=== PATIENT | female | born 1985 | race Caucasian/White ===

== ENCOUNTER 2017-06-07 17:41 | Emergency (ER) | payer OTHER ==
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
[2017-06-07 19:45] VITALS: BP 127/74
== END 2017-06-07 19:41 | disposition home or self-care (01) ==
LOC: ER 17:41
DX: S16.1XXA Strain of muscle, fascia and tendon at neck level, initial encounter (principal); S39.012A Strain of muscle, fascia and tendon of lower back, initial encounter; V89.2XXA Person injured in unspecified motor-vehicle accident, traffic, initial encounter; I10 Essential (primary) hypertension; Z91.040 Latex allergy status
CPT/HCPCS: 99283

== ENCOUNTER 2017-11-15 18:03 | Emergency (ER) | payer SELFPAY ==
[2017-11-15] MEDS ORDERED: NORMAL SALINE 1000 ML 1,000 ML IV ONE (18:36)
--- NOTE | 2017-11-15 18:36 | ER Document Report ---
ED Medical Screen (RME) - General Chief Complaint: Vaginal Bleeding Stated Complaint: VAGINAL BLEEDING Time Seen by Provider: 11/15/17 18:30 Notes: RAPID MEDICAL EVALUATION DISCLOSURE I have seen this patient as part of a Rapid Medical Evaluation and, if applicable, placed any initially appropriate orders. The patient will be seen and fully evaluated, including a full history and physical exam, by a provider ( in Main ED or Fast Track) when a room becomes available. 32-year-old female here with complaints of heavy vaginal bleeding over the past 5-6 days. She states that she has been soaking the "overnight pads" within 2 hours and the blood is pouring out over the sides. She has past very large clots. She has had 2 negative home test and wonders if she might be because she accidentally used her NuvaRing incorrectly for 1 week. Denies any abdominal pain at this time but did have some intermittent cramping earlier. Exam Minimally tachycardic No abdominal TTP TRAVEL OUTSIDE OF THE [place] IN LAST 30 DAYS: No - Related Data Allergies/Adverse Reactions: latex [Latex] Adverse Reaction (Intermediate, Verified 06/07/17 17:43) Rash, Itching Past Medical History - Past Medical History Cardiac Medical History: Reports: Hx Hypertension Pulmonary Medical History: Reports: Hx Pneumonia Neurological Medical History: Reports: Hx Migraine Musculoskeltal Medical History: Reports Hx Arthritis, Reports Hx Musculoskeletal Deformity Psychiatric Medical History: Reports: Hx Anxiety, Hx Attention Deficit Hyperactivity Disorder, Hx Depression Past Surgical History: Reports: Hx Abdominal Surgery - umb hernia, Hx Tonsillectomy, Hx Umbilical Hernia - Immunizations Immunizations up to date: Yes Hx Diphtheria, Pertussis, Tetanus Vaccination: Yes - 2010 Physical Exam - Vital signs Vitals: Temp Pulse Resp BP Pulse Ox 98.3 F 114 H 16 131/86 H 98 11/15/17 18:10 11/15/17 18:10 11/15/17 18:10 11/15/17 18:10 11/15/17 18:10 Course - Vital Signs Vital signs: Temp Pulse Resp BP Pulse Ox 98.3 F 114 H 16 131/86 H 98 11/15/17 18:10 11/15/17 18:10 11/15/17 18:10 11/15/17 18:10 11/15/17 18:10
[2017-11-15 19:31] LABS: ABSOLUTE EOSINOPHILS # (AUTO) 0.2 10^3/uL (0.0-0.6); ABSOLUTE LYMPHOCYTES (AUTO) 3.2 10^3/uL (0.5-4.7); ABSOLUTE MONOCYTES (AUTO) 0.9 10^3/uL (0.1-1.4); BASOPHILS % (AUTO) 0.4 % (0-2); EOSINOPHILS % (AUTO) 1.5 % (0-6); HEMATOCRIT 39.2 % (36.0-47.0); HEMOGLOBIN 13.5 g/dL (12.0-15.5); LYMPHOCYTES % (AUTO) 26.3 % (13-45); MEAN CORPUSCULAR HEMOGLOBIN 29.6 pg (27.0-33.4); MEAN CORPUSCULAR HGB CONC 34.5 g/dL (32.0-36.0); MEAN CORPUSCULAR VOLUME 86 fl (80-97); MONOCYTES % (AUTO) 7.1 % (3-13); PLATELET COUNT 460 10^3/uL (150-450); RED BLOOD COUNT 4.56 10^6/uL (3.72-5.28); SEGMENTED NEUTROPHILS % (AUTO) 64.7 % (42-78); TOTAL CELLS COUNTED % (AUTO) 100 %; WHITE BLOOD COUNT 12.3 10^3/uL (4.0-10.5)
[2017-11-15 19:56] LABS: ANION GAP 13 (5-19); BLOOD UREA NITROGEN 14 mg/dL (7-20); CALCIUM 9.8 mg/dL (8.4-10.2); CARBON DIOXIDE 28 mmol/L (22-30); CHLORIDE 103 mmol/L (98-107); GLUCOSE 94 mg/dL (75-110); POTASSIUM 3.6 mmol/L (3.6-5.0)
[2017-11-15 20:02] LABS: APPEARANCE,URINE SLIGHTLY-CLOUDY; BILIRUBIN,URINE NEGATIVE (NEGATIVE); COLOR,URINE YELLOW; GLUCOSE, URINE NEGATIVE (NEGATIVE); KETONES,URINE NEGATIVE (NEGATIVE); LEUKOCYTE ESTERASE,URINE NEGATIVE (NEGATIVE); NITRITE,URINE NEGATIVE (NEGATIVE); PROTEIN,URINE NEGATIVE (NEGATIVE); URINE SPECIFIC GRAVITY 1.025; UROBILINOGEN,URINE NEGATIVE mg/dL (<2.0)
--- NOTE | 2017-11-15 22:12 | ER Document Report ---
ED GI/ - General Chief Complaint: Vaginal Bleeding Stated Complaint: VAGINAL BLEEDING Time Seen by Provider: 11/15/17 18:30 Mode of Arrival: Ambulatory Information source: Patient Notes: Patient is an otherwise healthy 32-year-old female who presents with chief complaint of vaginal bleeding for the last 6 days. Patient reports that she is soaking through approximately 1 pad every 2-3 hours. Patient reports that she is bleeding dark red blood with clots. Patient does report that she typically uses a NuvaRing and she feels that she got off schedule with the neighboring by 1 week. Patient denies any other past medical or surgical history. TRAVEL OUTSIDE OF THE [place] IN LAST 30 DAYS: No - Related Data Allergies/Adverse Reactions: latex [Latex] Adverse Reaction (Intermediate, Verified 06/07/17 17:43) Rash, Itching Past Medical History - General Information source: Patient - Social History Smoking Status: Never Smoker Chew tobacco use (# tins/day): No Frequency of alcohol use: None Drug Abuse: None Lives with: Family Family History: CAD, Hyperlipidemia, Hypertension, Malignancy Patient has suicidal ideation: No Patient has homicidal ideation: No - Past Medical History Cardiac Medical History: Reports: Hx Hypertension Pulmonary Medical History: Reports: Hx Pneumonia Neurological Medical History: Reports: Hx Migraine Renal/ Medical History: Denies: Hx Peritoneal Dialysis Musculoskeltal Medical History: Reports Hx Arthritis, Reports Hx Musculoskeletal Deformity Psychiatric Medical History: Reports: Hx Anxiety, Hx Attention Deficit Hyperactivity Disorder, Hx Depression Past Surgical History: Reports: Hx Abdominal Surgery - umb hernia, Hx Tonsillectomy, Hx Umbilical Hernia - Immunizations Immunizations up to date: Yes Hx Diphtheria, Pertussis, Tetanus Vaccination: Yes - 2010 Review of Systems - Review of Systems Constitutional: No symptoms reported. denies: Chills, Fever EENT: No symptoms reported Cardiovascular: No symptoms reported Respiratory: No symptoms reported Gastrointestinal: No symptoms reported. denies: Diarrhea, Nausea, Vomiting Genitourinary: No symptoms reported. denies: Burning, Dysuria, Frequency, Flank pain Female Genitourinary: See HPI Musculoskeletal: No symptoms reported Skin: No symptoms reported Hematologic/Lymphatic: No symptoms reported Neurological/Psychological: No symptoms reported Physical Exam - Vital signs Vitals: Temp Pulse Resp BP Pulse Ox 98.3 F 114 H 16 131/86 H 98 11/15/17 18:10 11/15/17 18:10 11/15/17 18:10 11/15/17 18:10 11/15/17 18:10 - Notes Notes: PHYSICAL EXAMINATION: GENERAL: Well-appearing, well-nourished and in no acute distress. HEAD: Atraumatic, normocephalic. EYES: Pupils equal round and reactive to light, extraocular movements intact, conjunctiva are normal. ENT: Nares patent, oropharynx clear without exudates. Moist mucous membranes. NECK: Normal range of motion, supple without lymphadenopathy LUNGS: Breath sounds clear to auscultation bilaterally and equal. No wheezes rales or rhonchi. HEART: Regular rate and rhythm without murmurs ABDOMEN: Soft, nontender, nondistended abdomen. No guarding, no rebound. No masses appreciated. Female : Mild but constant bleeding noted from cervical os. No CMT, no abnormal discharge. Musculoskeletal: Normal range of motion, no pitting or edema. No cyanosis. NEUROLOGICAL: Cranial nerves grossly intact. Normal speech, normal gait. Normal sensory, motor exams PSYCH: Normal mood, normal affect. SKIN: Warm, Dry, normal turgor, no rashes or lesions noted. Course - Re-evaluation Re-evalutation: Otherwise healthy 32-year-old female, non-toxic in appearance presenting with chief complaint of vaginal bleeding. Patient reports this is been going on approximately 6 days and that she is soaking through approximately 1 pad every 2 -3 hours. Initial workup reveals a normal urinalysis other than blood in the urine. Basic metabolic panel is within normal limits. CBC is normal with a H& H of 13 and 39. HCG is negative. Speculum exam reveals mild but constant passage of dark red blood from the cervical loss. There are small clots noted. Patient denies any episodes of syncope, denies any weakness. Patient was initially tachycardic on arrival with a heart rate of 115 however patient does report that she was feeling anxious at the time, patient was normotensive. Manual heart rate is 87. Given that patient has had this bleeding ongoing for 6 days and her H&H is stable at 13 and 39, will discharge patient with plans to follow-up with OB next week. Patient instructed to return to the emergency department if she begins having increased bleeding, soaking through more than 1 pad per hour, she feels weakness , has a rapid heart rate or she passes out. Patient verbalizes understanding of plan and agrees to same. - Vital Signs Vital signs: Temp Pulse Resp BP Pulse Ox 98.3 F 114 H 16 131/86 H 98 11/15/17 18:10 11/15/17 18:10 11/15/17 18:10 11/15/17 18:10 11/15/17 18:10 - Laboratory Result Diagrams: 11/15/17 19:04 11/15/17 19:04 Laboratory results interpreted by me: 11/15/17 11/15/17 19:04 19:47 WBC 12.3 H Plt Count 460 H Urine Blood LARGE H Discharge - Discharge Clinical Impression: Vaginal bleeding Condition: Stable Disposition: HOME, SELF-CARE Additional Instructions: Vaginal Bleeding You are having an episode of abnormal bleeding. Causes of abnormal vaginal bleeding can include miscarriage or tubal , tumors such as cancer or benign fibroids, medication effects, or hormone imbalance. Testing can eliminate unsuspected , tumors, or infection as a cause. "Dysfunctional uterine bleeding" is due to hormone imbalance, and is especially common at times when the normal cycle is disturbed -- whether by recent , use of control pills or hormones, or impending menopause. If the bleeding is innocent, most commonly a short course of hormones is given to restore the uterus to normal. Sometimes, the normal menstrual cycle corrects itself naturally. Sometimes , brief hormone therapy, or even a D&C is required. Your physician will advise you. Treatment for anemia may be required if bleeding is severe. You should rest and avoid intercourse until the bleeding is controlled. Call the doctor or return for re-examination if you feel faint, have increasing pain, or have a major increase in the amount of bleeding. Please follow up with OBGYN next week. Return to the emergency department if you develop worsening bleeding and soaking through more than 1 pad per hour. Referrals: [facility] [Provider Group] - Follow up as needed
[2017-11-16 00:01] VITALS: BP 125/80
== END 2017-11-15 22:55 | disposition home or self-care (01) ==
LOC: ER 18:03
DX: N93.8 Other specified abnormal uterine and vaginal bleeding (principal); I10 Essential (primary) hypertension; Z91.040 Latex allergy status
CPT/HCPCS: 36415; 80048; 81001; 81025; 85025; 99284

== ENCOUNTER 2018-08-01 09:22 | Emergency (ER) | payer MEDICAID ==
--- NOTE | 2018-08-01 11:04 | ER Document Report ---
ED General - General Chief Complaint: Facial Injury Stated Complaint: FACIAL INJURY Time Seen by Provider: 08/01/18 10:56 TRAVEL OUTSIDE OF THE [place] IN LAST 30 DAYS: No - HPI Notes: Patient is a 33-year-old female that presents to the emergency department for chief complaint of nasal pain. Patient states yesterday afternoon while she was at the gym she dropped a 15 pound medicine ball on her face. She was lying on her back holding the ball with extended arms and it slipped hitting her in the face. She states she had epistaxis for about 1 hour out of her left nares which resolved at home. She now reports swelling in her face and upper lip. She states her upper lip has some paresthesias. She is reporting a diffuse headache and pain in her nose. She tried taking Motrin which did give her some symptomatic relief. She denied any loss of consciousness. She denies vision changes and weakness Past Medical History: Negative Past Surgical History: Umbilical hernia repair Social History: Denies drugs alcohol and tobacco Family History: Reviewed and noncontributory for presenting illness Allergies: Reviewed, see documented allergy list. REVIEW OF SYSTEMS: CONSTITUTIONAL : No fever No chills No diaphoresis No recent illness EENT: No vision changes No congestion No sore throat Epistaxis Facial pain CARDIOVASCULAR: No chest pain No palpitations RESPIRATORY: No shortness of breath No cough No difficulty breathing GASTROINTESTINAL: No abdominal pain No nausea No vomiting No diarrhea GENITOURINARY: No dysuria No hematuria No difficulty urinating MUSCULOSKELETAL: No back pain No leg pain No arm pain SKIN: No rashes No lesions LYMPHATIC: No swollen, enlarged glands. NEUROLOGICAL: No lightheadedness No headache No weakness No paresthesias PSYCHIATRIC: No anxiety No depression PHYSICAL EXAMINATION: Vital signs reviewed, nursing noted reviewed. GENERAL: Well-appearing, well-nourished and in no acute distress. HEAD: Atraumatic, normocephalic. EYES: Eyes appear normal, extraocular movements intact, sclera anicteric, conjunctiva are normal. ENT: nares patent, no nasal septal hematoma or epistaxis, no dental fractures or injury, no dental laxity, no facial bone laxity, tenderness to palpation of nasal bridge with mild deformity, tenderness to palpation of maxilla and upper lip. Oropharynx clear without exudates. Moist mucous membranes. NECK: No midline spinal tenderness, normal range of motion, supple without lymphadenopathy LUNGS: Breath sounds clear to auscultation bilaterally and equal. No wheezes rales or rhonchi. HEART: Regular rate and rhythm without murmurs ABDOMEN: Soft, nontender, normoactive bowel sounds. No rebound, guarding, or rigidity. No masses appreciated. EXTREMITIES: Nontender, good range of motion, no pitting or edema. NEUROLOGICAL: No focal neurological deficits. Moves all extremities spontaneously Motor and sensory grossly intact on exam. PSYCH: Normal mood, normal affect. SKIN: Warm, Dry, normal turgor, no rashes or lesions noted on exposed skin - Related Data Allergies/Adverse Reactions: latex [Latex] Adverse Reaction (Intermediate, Verified 06/07/17 17:43) Rash, Itching Past Medical History - Social History Smoking Status: Never Smoker Family History: CAD, Hyperlipidemia, Hypertension, Malignancy - Past Medical History Cardiac Medical History: Reports: Hx Hypertension Pulmonary Medical History: Reports: Hx Pneumonia Neurological Medical History: Reports: Hx Migraine Renal/ Medical History: Denies: Hx Peritoneal Dialysis Musculoskeletal Medical History: Reports Hx Arthritis, Reports Hx Musculoskeletal Deformity Psychiatric Medical History: Reports: Hx Anxiety, Hx Attention Deficit Hyperactivity Disorder, Hx Depression Past Surgical History: Reports: Hx Abdominal Surgery - umb hernia, Hx Tonsillectomy, Hx Umbilical Hernia - Immunizations Immunizations up to date: Yes Hx Diphtheria, Pertussis, Tetanus Vaccination: Yes - 2010 Physical Exam - Vital signs Vitals: Temp Pulse Resp BP Pulse Ox 97.8 F 101 H 16 125/83 97 08/01/18 09:33 08/01/18 09:33 08/01/18 09:33 08/01/18 09:33 08/01/18 09:33 Course - Re-evaluation Re-evalutation: 08/01/18 11:04 Vitals reviewed. Nursing notes reviewed. Patient has tenderness to palpation of her nose and maxilla. There is no facial bone laxity or active epistaxis. Imaging will be obtained to evaluate for underlying fracture. 08/01/18 11:47 CT brain and facial bones are negative for acute injury. Patient's paresthesias to her upper lip are likely related to the localized edema. She has no dental injuries or active bleeding. Patient will be discharged home in stable condition. She will continue to use ice as well as Tylenol and Motrin. She will follow with her PCP for reevaluation in the next few days. Facial Bones CT 08/01/18 11:01 IMPRESSION: NO ACUTE FINDINGS. Head CT 08/01/18 11:01 IMPRESSION: NORMAL BRAIN CT WITHOUT CONTRAST. EVIDENCE OF ACUTE STROKE: NO. - Vital Signs Vital signs: Temp Pulse Resp BP Pulse Ox 97.8 F 101 H 16 125/83 97 08/01/18 09:33 08/01/18 09:33 08/01/18 09:33 08/01/18 09:33 08/01/18 09:33 Discharge - Discharge Clinical Impression: Facial contusion Qualifiers: Encounter type: initial encounter Qualified Code(s): S00.83XA - Contusion of other part of head, initial encounter Condition: Stable Disposition: HOME, SELF-CARE Instructions: Injured Nose ([facility]), Nosebleed Instructions ([facility]) Additional Instructions: Please return to the emergency department if you have any worsening, or concern of your symptoms. Please return to the emergency department if you develop chest pain, difficulty breathing, severe abdominal pain, or ongoing vomiting. Please follow-up with your primary care physician in 2-3 days and any other recommended physicians. If prescribed, take all medications as directed. If you have any questions or concerns do not hesitate to return the emergency department for evaluation. Apply ice to your nose and upper lip for 15-20 minutes at a time 2-3 times daily to help with pain and swelling Continue to take Tylenol and ibuprofen at home as needed for pain Referrals: [facility] [Provider Group] - Follow up as needed
--- NOTE | 2018-08-01 11:39 | RADIOLOGY REPORT (SQ) ---
EXAM DESCRIPTION: CT FACIAL AREA WITHOUT COMPLETED DATE/TIME: 08/01/2018 11:23 am REASON FOR STUDY: trauma, nasal tenderness COMPARISON: None. TECHNIQUE: Noncontrasted images through the facial bones and orbits windowed for bone and soft tissu e. Additional coronal and sagittal reconstructed images reviewed. All images stored on PACS. All CT scanners at this facility use dose modulation, iterative reconstruction, and/or weight based d osing when appropriate to reduce radiation dose to as low as reasonably achievable (ALARA). [facility]: Dose Right [facility]: CareDose [facility]: Dose Right [facility]: Teradose 4D [facility]: KOALA.CH RADIATION DOSE: CT Rad equipment meets quality standard of care and radiation dose reduction techniq ues were employed. CTDIvol: 30.4 mGy. DLP: 545 mGy-cm. mGy. LIMITATIONS: None. FINDINGS: FACIAL BONES: No fracture or bone lesion. ORBITS: Intact. No fracture. Symmetric intact globes and retroorbital soft tissues. PARANASAL SINUSES: Clear. No significant mucosal thickening, mass or fluid. SOFT TISSUES: No mass or edema. INFERIOR BRAIN: See separate report same date. OTHER: No other significant finding. IMPRESSION: NO ACUTE FINDINGS. TECHNICAL DOCUMENTATION: JOB ID: [id number] Quality ID # [id number]: Final reports with documentation of one or more dose reduction techniques (e.g., Au tomated exposure control, adjustment of the mA and/or kV according to patient size, use of iterative reconstruction technique) 2010 [employer]- All Rights Reserved Reading location - IP/workstation name: [email or web address]
--- NOTE | 2018-08-01 11:40 | RADIOLOGY REPORT (SQ) ---
EXAM DESCRIPTION: CT HEAD WITHOUT COMPLETED DATE/TIME: 08/01/2018 11:23 am REASON FOR STUDY: trauma COMPARISON: None. TECHNIQUE: Axial images acquired through the brain without intravenous contrast. Images reviewed wi th bone, brain and subdural windows. Additional sagittal and coronal reconstructions were generated. Images stored on PACS. All CT scanners at this facility use dose modulation, iterative reconstruction, and/or weight based d osing when appropriate to reduce radiation dose to as low as reasonably achievable (ALARA). [facility]: Dose Right [facility]: CareDose [facility]: Dose Right [facility]: Teradose 4D [facility]: Unmetric RADIATION DOSE: CT Rad equipment meets quality standard of care and radiation dose reduction techniq ues were employed. CTDIvol: 53.2 mGy. DLP: 1097 mGy-cm. mGy. LIMITATIONS: None. FINDINGS: VENTRICLES: Normal size and contour. CEREBRUM: No masses. No hemorrhage. No midline shift. No evidence for acute infarction. Normal gra y/white matter differentiation. No areas of low density in the white matter. CEREBELLUM: No masses. No hemorrhage. No alteration of density. No evidence for acute infarction. EXTRAAXIAL SPACES: No fluid collections. No masses. ORBITS AND GLOBE: No intra- or extraconal masses. Normal contour of globe without masses. CALVARIUM: No fracture. PARANASAL SINUSES: No fluid or mucosal thickening. SOFT TISSUES: No mass or hematoma. OTHER: No other significant finding. IMPRESSION: NORMAL BRAIN CT WITHOUT CONTRAST. EVIDENCE OF ACUTE STROKE: NO. COMMENT: Quality ID # [id number]: Final reports with documentation of one or more dose reduction techniques (e.g., Automated exposure control, adjustment of the mA and/or kV according to patient size, use of iterative reconstruction technique) TECHNICAL DOCUMENTATION: JOB ID: [id number] [employer]- All Rights Reserved Reading location - IP/workstation name: [email or web address]
[2018-08-01 12:12] VITALS: BP 114/77
== END 2018-08-01 12:10 | disposition home or self-care (01) ==
LOC: ER 09:22
DX: S00.83XA Contusion of other part of head, initial encounter (principal); R04.0 Epistaxis; R20.2 Paresthesia of skin; W20.8XXA Other cause of strike by thrown, projected or falling object, initial encounter; Y93.B9 Activity, other involving muscle strengthening exercises; Y92.39 Other specified sports and athletic area as the place of occurrence of the external cause; I10 Essential (primary) hypertension
CPT/HCPCS: 70450; 70486; 99283

== ENCOUNTER 2018-12-21 19:53 | Emergency (ER) | payer MEDICAID ==
[2018-12-21 20:01] VITALS: BP 125/83
[2018-12-21] MEDS ORDERED: ONDANSETRON 4 MG TAB.RAPDIS PO ONE (20:48)
--- NOTE | 2018-12-21 20:50 | ER Document Report ---
ED Medical Screen (RME) - General Chief Complaint: Flank Pain Stated Complaint: LOWER BACK PAIN Time Seen by Provider: 12/21/18 20:36 Notes: Patient is a 33-year-old female who presents emergency department with left flank and abdominal pain. She states that her symptoms started 4 days ago at 4:00 in the morning. She states that she felt like she needed to have a bowel movement or maybe had gas. She was taking Ex-Lax to help and it helped a little bit, but she still continues to have the pain. Last menstrual cycle was 2 weeks ago. She is currently on the NuvaRing. She has a past surgical history of a umbilical hernia which she had fixed at 8 years old. 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 Exam: Tender left mid abdomen. I have greeted and performed a rapid initial assessment of this patient. A comprehensive ED assessment and evaluation of the patient, analysis of test results and completion of medical decision making process will be conducted by an additional ED providers. TRAVEL OUTSIDE OF THE [place] IN LAST 30 DAYS: No - Related Data Allergies/Adverse Reactions: latex [Latex] Adverse Reaction (Intermediate, Verified 06/07/17 17:43) Rash, Itching Past Medical History - Social History Frequency of alcohol use: None Drug Abuse: None - Past Medical History Cardiac Medical History: Reports: Hx Hypertension Pulmonary Medical History: Reports: Hx Pneumonia Neurological Medical History: Reports: Hx Migraine Renal/ Medical History: Denies: Hx Peritoneal Dialysis Musculoskeltal Medical History: Reports Hx Arthritis, Reports Hx Musculoskeletal Deformity Psychiatric Medical History: Reports: Hx Anxiety, Hx Attention Deficit Hyperactivity Disorder, Hx Depression Past Surgical History: Reports: Hx Abdominal Surgery - umb hernia, Hx Tonsillectomy, Hx Umbilical Hernia - Immunizations Immunizations up to date: Yes Hx Diphtheria, Pertussis, Tetanus Vaccination: Yes - 2010 Physical Exam - Vital signs Vitals: Temp Pulse Resp BP Pulse Ox 97.9 F 93 15 125/83 96 12/21/18 19:59 12/21/18 19:59 12/21/18 19:59 12/21/18 19:59 12/21/18 19:59 Course - Vital Signs Vital signs: Temp Pulse Resp BP Pulse Ox 97.9 F 93 15 125/83 96 12/21/18 19:59 12/21/18 19:59 12/21/18 19:59 12/21/18 19:59 12/21/18 19:59
[2018-12-21] MEDS ORDERED: DICYCLOMINE HCL 10 MG CAPSULE PO ONE (20:52)
[2018-12-21 21:50] LABS: APPEARANCE,URINE SLIGHTLY-CLOUDY; BILIRUBIN,URINE NEGATIVE (NEGATIVE); COLOR,URINE YELLOW; GLUCOSE, URINE NEGATIVE (NEGATIVE); KETONES,URINE NEGATIVE (NEGATIVE); LEUKOCYTE ESTERASE,URINE NEGATIVE (NEGATIVE); NITRITE,URINE NEGATIVE (NEGATIVE); PROTEIN,URINE NEGATIVE (NEGATIVE); URINE SPECIFIC GRAVITY 1.015; UROBILINOGEN,URINE NEGATIVE mg/dL (<2.0)
[2018-12-21 22:08] LABS: ALBUMIN 4.2 g/dL (3.5-5.0); ALKALINE PHOSPHATASE 71 U/L (38-126); ANION GAP 8 (5-19); ASPARTATE AMINO TRANSFERASE 19 U/L (14-36); BILIRUBIN,DIRECT 0.2 mg/dL (0.0-0.4); BILIRUBIN,TOTAL 0.3 mg/dL (0.2-1.3); BLOOD UREA NITROGEN 10 mg/dL (7-20); CALCIUM 9.7 mg/dL (8.4-10.2); CARBON DIOXIDE 25 mmol/L (22-30); CHLORIDE 108 mmol/L (98-107); GLUCOSE 85 mg/dL (75-110); POTASSIUM 4.4 mmol/L (3.6-5.0); TOTAL PROTEIN 7.5 g/dL (6.3-8.2)
[2018-12-21 22:57] LABS: ABSOLUTE BASOPHILS # (AUTO) 0.1 10^3/uL (0.0-0.2); ABSOLUTE EOSINOPHILS # (AUTO) 0.2 10^3/uL (0.0-0.6); ABSOLUTE LYMPHOCYTES (AUTO) 4.1 10^3/uL (0.5-4.7); ABSOLUTE MONOCYTES (AUTO) 0.9 10^3/uL (0.1-1.4); ABSOLUTE NEUT (AUTO) 7.1 10^3/uL (1.7-8.2); BASOPHILS % (AUTO) 0.5 % (0-2); EOSINOPHILS % (AUTO) 1.7 % (0-6); HEMATOCRIT 40.5 % (36.0-47.0); HEMOGLOBIN 13.7 g/dL (12.0-15.5); LYMPHOCYTES % (AUTO) 33.3 % (13-45); MEAN CORPUSCULAR HEMOGLOBIN 29.2 pg (27.0-33.4); MEAN CORPUSCULAR HGB CONC 33.8 g/dL (32.0-36.0); MEAN CORPUSCULAR VOLUME 86 fl (80-97); MONOCYTES % (AUTO) 7.6 % (3-13); PLATELET COUNT 471 10^3/uL (150-450); RED CELL DISTRIBUTION WIDTH 12.9 % (11.5-14.0); SEGMENTED NEUTROPHILS % (AUTO) 56.9 % (42-78); TOTAL CELLS COUNTED % (AUTO) 100 %; WHITE BLOOD COUNT 12.4 10^3/uL (4.0-10.5)
--- NOTE | 2018-12-22 01:51 | ER Document Report ---
ED GI/ - General Chief Complaint: Flank Pain Stated Complaint: LOWER BACK PAIN Time Seen by Provider: 12/21/18 20:36 Primary Care Provider: ANITA DU MD [Primary Care Provider] - Follow up as needed Notes: This is a 33-year-old female patient emergency department chief complaint of left flank pain and left lower quadrant abdominal pain. Symptoms have been present for several days. Seems to be getting worse. No vaginal discharge. No dysuria. No blood in urine. No prior history of kidney stones. No rash. No shortness of breath. No cough. TRAVEL OUTSIDE OF THE [place] IN LAST 30 DAYS: No - HPI Patient complains to provider of: Abdominal pain, Flank pain Timing/Duration: Gradual Quality of pain: Achy Severity at maximum: Moderate Severity in ED: Moderate Pain Level: 3 Location: LUQ, LLQ, Left flank Vaginal bleeding (Compared to normal period): None - Related Data Allergies/Adverse Reactions: latex [Latex] Adverse Reaction (Intermediate, Verified 06/07/17 17:43) Rash, Itching Past Medical History - General Information source: Patient - Social History Smoking Status: Never Smoker Frequency of alcohol use: None Drug Abuse: None Lives with: Family Family History: CAD, Hyperlipidemia, Hypertension, Malignancy Patient has suicidal ideation: No Patient has homicidal ideation: No - Past Medical History Cardiac Medical History: Reports: Hx Hypertension Pulmonary Medical History: Reports: Hx Pneumonia Neurological Medical History: Reports: Hx Migraine Renal/ Medical History: Denies: Hx Peritoneal Dialysis Musculoskeletal Medical History: Reports Hx Arthritis, Reports Hx Musculoskeletal Deformity Psychiatric Medical History: Reports: Hx Anxiety, Hx Attention Deficit Hyperactivity Disorder, Hx Depression Past Surgical History: Reports: Hx Abdominal Surgery - umb hernia, Hx Tonsillectomy, Hx Umbilical Hernia - Immunizations Immunizations up to date: Yes Hx Diphtheria, Pertussis, Tetanus Vaccination: Yes - 2010 Review of Systems - Review of Systems Notes: Constitutional: denies: Chills, Diaphoresis, Fever, Malaise, Weakness EENT: denies: Eye discharge, Blurred vision, Tearing, Double vision, Nose congestion, Nose discharge, Throat swelling, Mouth pain Cardiovascular: denies: Palpitations, Heart racing, Orthopnea, Dyspnea, Chest pain Respiratory: denies: Cough, Hurts to breathe, Wheezing, Shortness of breath Gastrointestinal: denies: , Diarrhea, Nausea, Vomiting, Black stools, bright red blood in stool, +Abdominal pain Genitourinary: denies: Burning, Dysuria, Discharge, Frequency, +Flank pain, - Hematuria Musculoskeletal: denies: Joint pain, Joint swelling, Muscle pain, Muscle stiffness, back pain Hematologic/Lymphatic: denies: Anemia, Easy bleeding, Easy bruising, Blood clots Neurological/Psychological: denies: Confusion, Dementia, Depression, Loss of consciousness Skin: No lesions, no masses, no skin breakdown, no abscesses Physical Exam - Vital signs Vitals: Temp Pulse Resp BP Pulse Ox 97.9 F 93 15 125/83 96 12/21/18 19:59 12/21/18 19:59 12/21/18 19:59 12/21/18 19:59 12/21/18 19:59 Interpretation: Normal - General General appearance: Appears well, Alert - HEENT Head: Normocephalic, Atraumatic Eyes: Normal Pupils: PERRL - Respiratory Respiratory status: No respiratory distress Chest status: Nontender Breath sounds: Normal Chest palpation: Normal - Cardiovascular Rhythm: Regular Heart sounds: Normal auscultation Murmur: No - Abdominal Inspection: Normal Distension: No distension Bowel sounds: Normal Tenderness: Tender - Tenderness to palpation in the left upper quadrant and left lower quadrant with no guarding or rebound. Organomegaly: No: Hepatomegaly, Splenomegaly - Back Back: Normal, Nontender - Extremities General upper extremity: Normal inspection, Nontender, Normal color, Normal ROM, Normal temperature General lower extremity: Normal inspection, Nontender, Normal color, Normal ROM, Normal temperature, Normal weight bearing. No: Hodan's sign - Neurological Neuro grossly intact: Yes Cognition: Normal Orientation: AAOx4 [place] Coma Scale Eye Opening: Spontaneous [place]vet[place] Coma Scale Verbal: Oriented [place] Coma Scale Motor: Obeys Commands Svetlana Coma Scale Total: 15 Speech: Normal Motor strength normal: LUE, RUE, LLE, RLE Sensory: Normal - Psychological Associated symptoms: Normal affect, Normal mood - Skin Skin Temperature: Warm Skin Moisture: Dry Skin Color: Normal Course - Re-evaluation Re-evalutation: 12/22/18 02:51 Laboratory 12/21/18 12/21/18 12/21/18 21:25 21:25 21:25 WBC RBC Hgb Hct MCV MCH MCHC RDW Plt Count Seg Neutrophils % Lymphocytes % Monocytes % Eosinophils % Basophils % Absolute Neutrophils Absolute Lymphocytes Absolute Monocytes Absolute Eosinophils Absolute Basophils Sodium 141.1 Potassium 4.4 Chloride 108 H Carbon Dioxide 25 Anion Gap 8 BUN 10 Creatinine 0.70 Est GFR ( Amer) > 60 Est GFR (Non-Af Amer) > 60 Glucose 85 Calcium 9.7 Total Bilirubin 0.3 Direct Bilirubin 0.2 Neonat Total Bilirubin Not Reportable Neonat Direct Bilirubin Not Reportable Neonat Indirect Bili Not Reportable AST 19 ALT 13 Alkaline Phosphatase 71 Total Protein 7.5 Albumin 4.2 Lipase Serum HCG, Qual NEGATIVE Urine Color YELLOW Urine Appearance SLIGHTLY-CLOUDY Urine pH 6.0 Ur Specific Mobile 1.015 Urine Protein NEGATIVE Urine Glucose (UA) NEGATIVE Urine Ketones NEGATIVE Urine Blood NEGATIVE Urine Nitrite NEGATIVE Urine Bilirubin NEGATIVE Urine Urobilinogen NEGATIVE Ur Leukocyte Esterase NEGATIVE Urine WBC (Auto) 4 Urine RBC (Auto) 1 Squamous Epi Cells Auto 1 Urine Mucus (Auto) RARE Urine Ascorbic Acid NEGATIVE 12/21/18 12/21/18 21:25 22:39 WBC 12.4 H RBC 4.70 Hgb 13.7 Hct 40.5 MCV 86 MCH 29.2 MCHC 33.8 RDW 12.9 Plt Count 471 H Seg Neutrophils % 56.9 Lymphocytes % 33.3 Monocytes % 7.6 Eosinophils % 1.7 Basophils % 0.5 Absolute Neutrophils 7.1 Absolute Lymphocytes 4.1 Absolute Monocytes 0.9 Absolute Eosinophils 0.2 Absolute Basophils 0.1 Sodium Potassium Chloride Carbon Dioxide Anion Gap BUN Creatinine Est GFR ( Amer) Est GFR (Non-Af Amer) Glucose Calcium Total Bilirubin Direct Bilirubin Neonat Total Bilirubin Neonat Direct Bilirubin Neonat Indirect Bili AST ALT Alkaline Phosphatase Total Protein Albumin Lipase 96.8 Serum HCG, Qual Urine Color Urine Appearance Urine pH Ur Specific Mobile Urine Protein Urine Glucose (UA) Urine Ketones Urine Blood Urine Nitrite Urine Bilirubin Urine Urobilinogen Ur Leukocyte Esterase Urine WBC (Auto) Urine RBC (Auto) Squamous Epi Cells Auto Urine Mucus (Auto) Urine Ascorbic Acid 12/22/18 04:12 Abdomen/Pelvis CT 12/22/18 01:50 IMPRESSION: Mild epiploic appendagitis. CT scan reveals mild epiploic appendagitis. Patient has received NSAIDs which is the recommendation for acute management of meningitis. I will continue her her on short course of Toradol since we did start her out on Toradol in the emergency department. I have given her follow-up information for general surgery in the event that this gets worse she may need to be seen by a surgeon. I do not think the patient needs to be seen urgently. She does not appear to be septic in any way. Has no peritoneal signs. Usually antibiotics are not warranted for management of this issue. Patient will be discharged at this time in stable condition. - Vital Signs Vital signs: Temp Pulse Resp BP Pulse Ox 97.9 F 93 15 125/83 96 12/21/18 19:59 12/21/18 19:59 12/21/18 19:59 12/21/18 19:59 12/21/18 19:59 - Laboratory Result Diagrams: 12/21/18 22:39 12/21/18 21:25 Laboratory results interpreted by me: 12/21/18 12/21/18 21:25 22:39 WBC 12.4 H Plt Count 471 H Chloride 108 H Discharge - Discharge Clinical Impression: Epiploic appendagitis Condition: Good Disposition: HOME, SELF-CARE Additional Instructions: You have been diagnosed with a inflammatory condition called epiploic appendagitis. This is not appendicitis. This condition results from a small little inflamed area on the colon. This is usually treated with anti-infla mmatory medications and is usually self-limiting. Sometimes these conditions need to be followed up by a surgeon. In the event that the pain is getting worse and it is not responding to the medications for which you have been prescribed please make an appointment with a surgeon to be reevaluated. As always if this is getting worse and you are unable to be seen by a surgeon or your primary care provider then please do not hesitate to return to the emergency department. If you develop fevers, worsening abdominal pain, blood in your stool, persistent vomiting or any other concerns please return to the emergency department. It is very important that you take the medication as prescribed as this will help with the pain and decrease the severity of this particular condition. Prescriptions: Ketorolac Tromethamine [Toradol 10 mg Tablet] 10 mg PO Q6HP PRN 5 Days #20 tablet PRN Reason: Ranitidine HCl [Zantac] 150 mg PO BID 7 Days #14 tablet Forms: Return to Work Referrals: ANITA DU MD [Primary Care Provider] - Follow up as needed DONOVAN IRBY MD [ACTIVE STAFF] - Follow up in 3-5 days
[2018-12-22] MEDS ORDERED: KETOROLAC TROMETHAMINE INJ/PF 30 MG/1 ML SDV IV ONE (03:05)
--- NOTE | 2018-12-22 04:07 | RADIOLOGY REPORT (SQ) ---
EXAM DESCRIPTION: CT ABDOMEN PELVIS WITH IV CONTRAST COMPLETED DATE/TME: 12/22/2018 01:50 CLINICAL HISTORY: 33 years Female, left flank and ab pain Comparison: None. Technique: IV contrast. Coronal and sagittal reformat. This exam was performed according to our departmental dose-optimization program, which includes automated exposure control, adjustment of the mA and/or kV according to patient size and/or use of iterative reconstruction technique. [facility]: Dose Right [facility]: CareDose [facility]: Dose Right [facility]: Teradose 4D [facility]: Blink (air taxi) LIMITATIONS: None Findings: Mild inflamed 1.8 cm epiploic appendage of the left colon, image 53 of series 3. Enostoses. No ascites. No pneumoperitoneum. Normal appendix. No gross evidence of gallbladder inflammation, hepatobiliary obstruction, or portal vein defect. No bowel obstruction. No hydronephrosis or hydroureter. No renal/ureteral stone. No evidence of abdominal aortic aneurysm. Inferior thorax, liver, gallbladder, pancreas, spleen, adrenals, renal system, gastrointestinal tract, pelvic organs, lymphatics, vasculature, and musculoskeleton appear otherwise unremarkable. IMPRESSION: Mild epiploic appendagitis.
[2018-12-22] MEDS ORDERED: HYDROCODONE/ACETAMINOPHEN 5-325 MG (6 TAB/ER DISP) PO PRN (04:19)
== END 2018-12-22 04:48 | disposition home or self-care (01) ==
LOC: ER 19:53
DX: K63.89 Other specified diseases of intestine (principal); R10.9 Unspecified abdominal pain; R10.32 Left lower quadrant pain; R10.12 Left upper quadrant pain; R10.811 Right upper quadrant abdominal tenderness; R10.814 Left lower quadrant abdominal tenderness; I10 Essential (primary) hypertension
CPT/HCPCS: 99283; 96374; 36415; 83690; 84703; 85025; 80053; 81001; 74177; J3490; S0119; J1885

== ENCOUNTER 2019-03-27 18:12 | Emergency (ER) | payer MEDICAID ==
--- NOTE | 2019-03-27 19:32 | ER Document Report ---
ED Medical Screen (RME) - General Chief Complaint: chest pain with cough Stated Complaint: SHORTNESS OF BREATH,CHEST PAIN Time Seen by Provider: 03/27/19 19:26 Primary Care Provider: ANITA DU MD [Primary Care Provider] - Follow up as needed Mode of Arrival: Ambulatory Information source: Patient Notes: 33-year-old female presented to ED for complaint of shortness of breath x2 weeks. She states it did get better about 3 or 4 days later. She states about a week ago she started with a cough again but the pain got a lot worse the shortness of breath got worse and she had tightness in the chest. She states she does have a history of bronchitis and pneumonia she states 2 days ago the cough got much worse and that when she looked the tightness in her chest. She states she is coughing up a little bit of phlegm. Denies any fevers. Patient's regular nonlabored lungs are clear to auscultation speaking in full sentences. We will get the chest x-ray and have examined by another provider. She states she is a former smoker drinks wine once a week no drugs. I have greeted and performed a rapid initial assessment of this patient. A comprehensive ED assessment and evaluation of the patient, analysis of test results and completion of medical decision making process will be conducted by an additional ED providers. TRAVEL OUTSIDE OF THE [place] IN LAST 30 DAYS: No - Related Data Allergies/Adverse Reactions: latex [Latex] Adverse Reaction (Intermediate, Verified 06/07/17 17:43) Rash, Itching Past Medical History - Social History Chew tobacco use (# tins/day): No Frequency of alcohol use: Rare Drug Abuse: None - Past Medical History Cardiac Medical History: Reports: Hx Hypertension Pulmonary Medical History: Reports: Hx Pneumonia Neurological Medical History: Reports: Hx Migraine Renal/ Medical History: Denies: Hx Peritoneal Dialysis Musculoskeltal Medical History: Reports Hx Arthritis, Reports Hx Musculoskeletal Deformity Psychiatric Medical History: Reports: Hx Anxiety, Hx Attention Deficit Hyperactivity Disorder, Hx Depression Past Surgical History: Reports: Hx Abdominal Surgery - umb hernia, Hx Tonsillectomy, Hx Umbilical Hernia - Immunizations Immunizations up to date: Yes Hx Diphtheria, Pertussis, Tetanus Vaccination: Yes - 2010 Physical Exam - Vital signs Vitals: Temp Pulse Resp BP Pulse Ox 98.2 F 100 18 128/78 H 98 03/27/19 18:33 03/27/19 18:33 03/27/19 18:33 03/27/19 18:33 03/27/19 18:33 Course - Vital Signs Vital signs: Temp Pulse Resp BP Pulse Ox 98.2 F 100 18 128/78 H 98 03/27/19 18:33 03/27/19 18:33 03/27/19 18:33 03/27/19 18:33 03/27/19 18:33 Doctor's Discharge - Discharge Referrals: ANITA DU MD [Primary Care Provider] - Follow up as needed
--- NOTE | 2019-03-27 19:47 | RADIOLOGY REPORT (SQ) ---
EXAM DESCRIPTION: CHEST 2 VIEWS COMPLETED DATE/TIME: 03/27/2019 7:39 pm REASON FOR STUDY: Cough and congestion COMPARISON: Chest radiograph 02/01/2016 EXAM PARAMETERS: NUMBER OF VIEWS: two views TECHNIQUE: Digital Frontal and Lateral radiographic views of the chest acquired. RADIATION DOSE: NA LIMITATIONS: none FINDINGS: LUNGS AND PLEURA: No opacities, masses or pneumothorax. No pleural effusion. MEDIASTINUM AND HILAR STRUCTURES: No masses or contour abnormalities. HEART AND VASCULAR STRUCTURES: Heart normal size. No evidence for failure. BONES: No acute findings. HARDWARE: None in the chest. OTHER: No other significant finding. IMPRESSION: NO ACUTE RADIOGRAPHIC FINDING IN THE CHEST. TECHNICAL DOCUMENTATION: JOB ID: [id number] [employer] website- All Rights Reserved Reading location - IP/workstation name: [email or web address]
[2019-03-27 22:38] VITALS: BP 141/74
--- NOTE | 2019-03-28 22:03 | EKG REPORT ---
SEVERITY:- NORMAL ECG - SINUS RHYTHM : Confirmed by: Barrett Gutierrez 28-Mar-2019 22:02:42
--- NOTE | 2019-03-30 14:23 | ER Document Report ---
Entered by PEGGY JARAMILLO SCRIBE 03/27/[id number] Acting as scribe for:QUINCY JIMENEZ MD ED Respiratory Problem - General Chief Complaint: chest pain with cough Stated Complaint: SHORTNESS OF BREATH,CHEST PAIN Time Seen by Provider: 03/27/19 19:26 Primary Care Provider: ANITA DU MD [Primary Care Provider] - Follow up as needed Mode of Arrival: Ambulatory Information source: Patient Notes: 33-year-old female who presents to the emergency department today with complaints of "a cold for 2 weeks". Patient states she has had pneumonia mult iple times in the past so she is worried that she might have pneumonia now as she has had chest heaviness for the last week. Patient states the cough is dry and she further describes it as "bronchitic sounding". Patient denies smoking history or fevers. TRAVEL OUTSIDE OF THE [place] IN LAST 30 DAYS: No - Related Data Allergies/Adverse Reactions: latex [Latex] Adverse Reaction (Intermediate, Verified 06/07/17 17:43) Rash, Itching Past Medical History - General Information source: Patient - Social History Smoking Status: Former Smoker Cigarette use (# per day): No Chew tobacco use (# tins/day): No Frequency of alcohol use: Rare Drug Abuse: None Lives with: Family Family History: CAD, Hyperlipidemia, Hypertension, Malignancy Patient has suicidal ideation: No Patient has homicidal ideation: No - Past Medical History Cardiac Medical History: Reports: Hx Hypertension Pulmonary Medical History: Reports: Hx Pneumonia Neurological Medical History: Reports: Hx Migraine Musculoskeletal Medical History: Reports Hx Arthritis, Reports Hx Musculoskeletal Deformity Psychiatric Medical History: Reports: Hx Anxiety, Hx Attention Deficit Hyperactivity Disorder, Hx Depression Past Surgical History: Reports: Hx Abdominal Surgery - umb hernia, Hx Tonsillectomy, Hx Umbilical Hernia - Immunizations Immunizations up to date: Yes Hx Diphtheria, Pertussis, Tetanus Vaccination: Yes - 2010 Review of Systems - Review of Systems Constitutional: denies: Fever EENT: No symptoms reported Cardiovascular: No symptoms reported Respiratory: See HPI, Cough Gastrointestinal: No symptoms reported Genitourinary: No symptoms reported Female Genitourinary: No symptoms reported Musculoskeletal: No symptoms reported Skin: No symptoms reported Hematologic/Lymphatic: No symptoms reported Neurological/Psychological: No symptoms reported -: Yes All other systems reviewed and negative Physical Exam - Vital signs Vitals: Temp Pulse Resp BP Pulse Ox 98.2 F 100 18 128/78 H 98 03/27/19 18:33 03/27/19 18:33 03/27/19 18:33 03/27/19 18:33 03/27/19 18:33 - Notes Notes: Physical Exam: General: Alert, appears well. HEENT: Normocephalic. Atraumatic. PERRL. Extraocular movements intact. Oropharynx clear. Neck: Supple. Non-tender. Respiratory: No respiratory distress. Clear and equal breath sounds bilaterally. Cardiovascular: Regular rate and rhythm. Abdominal: Normal Inspection. Non-tender. No distension. Normal Bowel Sounds. Back: No gross abnormalities. Extremities: Moves all four extremities. Upper extremities: Normal inspection. Normal ROM. Lower extremities: Normal inspection. No edema. Normal ROM. Neurological: Normal cognition. AAOx4. Normal speech. Psychological: Normal affect. Normal Mood. Skin: Warm. Dry. Normal color. Course - Re-evaluation Re-evalutation: 03/27/19 22:22 No acute findings on chest x-ray. Patient has been having intermittent productive cough for 2 weeks. Her symptoms are consistent with bronchitis. Provide prednisone and albuterol puffer. Return precautions provided - Vital Signs Vital signs: Temp Pulse Resp BP Pulse Ox 98.2 F 82 18 127/81 H 100 03/27/19 21:59 03/27/19 21:59 03/27/19 21:59 03/27/19 21:59 03/27/19 21:59 - Diagnostic Test Radiology reviewed: Image reviewed, Reports reviewed Discharge - Discharge Clinical Impression: Bronchitis Condition: Good Disposition: HOME, SELF-CARE Instructions: Bronchitis ([facility]) Prescriptions: Prednisone [Deltasone] 20 mg PO ASDIR PRN #10 tablet PRN Reason: Albuterol Sulfate [Proair HFA Inhalation Aerosol 8.5 gm MDI] 2 puff IH Q4H PRN #1 mdi PRN Reason: Referrals: ANITA DU MD [Primary Care Provider] - Follow up as needed I personally performed the services described in the documentation, reviewed and edited the documentation which was dictated to the scribe in my presence, and it accurately records my words and actions.
== END 2019-03-27 22:38 | disposition home or self-care (01) ==
LOC: ER 18:12
DX: J40 Bronchitis, not specified as acute or chronic (principal); R07.9 Chest pain, unspecified; R05 Cough; R06.02 Shortness of breath; Z87.891 Personal history of nicotine dependence; I10 Essential (primary) hypertension
CPT/HCPCS: 71046; 93005; 93010; 99285

== ENCOUNTER 2020-01-12 19:41 | Emergency (ER) | payer MEDICAID ==
--- NOTE | 2020-01-12 20:22 | ER Document Report ---
ED Medical Screen (RME) - General Chief Complaint: Irregular Pulse Stated Complaint: IRREGULAR PULSE,DIZZINESS/SHORTNESS OF BREATH Time Seen by Provider: 01/12/20 20:14 Primary Care Provider: ANITA DU MD [Primary Care Provider] - Follow up as needed Mode of Arrival: Ambulatory Information source: Patient Notes: 34-year-old female presented to ED from feeling like she had a flutter in her heart. She states she looked on her Apple Watch and said that her heart rate was 183. She states she went to clock at work and she got very hot sweaty and dizzy feeling like she was going to pass out so she told her boss that she might not be able to work. She states she sat down for little bit felt better so she went back to work and then she started feeling the fluttering and jittery again. She contacted her [employer] Watch again and heart rate was gone in the 180s and then went down to the 130s 134 and 133 and then went down to the low 100s. When she did get to the emergency room her pulse was 102. She did have a EKG which showed a heart rate of 102. She is on medicine for anxiety depression bipolar and ADHD. She is on Adderall. She states she does not smoke drink or use any drugs. She states she does have a history of pneumonia umbilical hernia and she was born at 27 weeks gestation weighing 2 pounds. I have greeted and performed a rapid initial assessment of this patient. A comprehensive ED assessment and evaluation of the patient, analysis of test results and completion of medical decision making process will be conducted by an additional ED providers. TRAVEL OUTSIDE OF THE [place] IN LAST 30 DAYS: No - Related Data Allergies/Adverse Reactions: latex [Latex] Adverse Reaction (Intermediate, Verified 01/12/20 20:13) Rash, Itching Home Medications: ABILIFY. LEXAPRO. BUSPERON. ADDERALL Past Medical History - Social History Frequency of alcohol use: None Drug Abuse: None - Past Medical History Cardiac Medical History: Reports: Hx Hypertension Pulmonary Medical History: Reports: Hx Pneumonia Neurological Medical History: Reports: Hx Migraine Renal/ Medical History: Denies: Hx Peritoneal Dialysis Musculoskeltal Medical History: Reports Hx Arthritis, Reports Hx Musculoskeletal Deformity Psychiatric Medical History: Reports: Hx Anxiety, Hx Attention Deficit Hyperactivity Disorder, Hx Depression Past Surgical History: Reports: Hx Abdominal Surgery - umb hernia, Hx Tonsillectomy, Hx Umbilical Hernia - Immunizations Immunizations up to date: Yes Hx Diphtheria, Pertussis, Tetanus Vaccination: Yes - 2010 Physical Exam - Vital signs Vitals: Temp Pulse Resp BP Pulse Ox 98.2 F 102 H 18 138/81 H 99 01/12/20 19:54 01/12/20 19:54 01/12/20 19:54 01/12/20 19:54 01/12/20 19:54 Course - Vital Signs Vital signs: Temp Pulse Resp BP Pulse Ox 98.2 F 102 H 18 138/81 H 99 01/12/20 19:54 01/12/20 19:54 01/12/20 19:54 01/12/20 19:54 01/12/20 19:54 Doctor's Discharge - Discharge Referrals: ANITA DU MD [Primary Care Provider] - Follow up as needed
[2020-01-12 20:56] LABS: ABSOLUTE BASOPHILS # (AUTO) 0.1 10^3/uL (0.0-0.2); ABSOLUTE EOSINOPHILS # (AUTO) 0.4 10^3/uL (0.0-0.6); ABSOLUTE LYMPHOCYTES (AUTO) 4.2 10^3/uL (0.5-4.7); ABSOLUTE NEUT (AUTO) 5.8 10^3/uL (1.7-8.2); BASOPHILS % (AUTO) 0.7 % (0-2); EOSINOPHILS % (AUTO) 3.1 % (0-6); HEMATOCRIT 42.4 % (36.0-47.0); HEMOGLOBIN 14.2 g/dL (12.0-15.5); LYMPHOCYTES % (AUTO) 36.5 % (13-45); MEAN CORPUSCULAR HEMOGLOBIN 29.6 pg (27.0-33.4); MEAN CORPUSCULAR HGB CONC 33.6 g/dL (32.0-36.0); MEAN CORPUSCULAR VOLUME 88 fl (80-97); MONOCYTES % (AUTO) 8.7 % (3-13); PLATELET COUNT 448 10^3/uL (150-450); RED BLOOD COUNT 4.81 10^6/uL (3.72-5.28); RED CELL DISTRIBUTION WIDTH 12.9 % (11.5-14.0); TOTAL CELLS COUNTED % (AUTO) 100 %; WHITE BLOOD COUNT 11.4 10^3/uL (4.0-10.5)
--- NOTE | 2020-01-12 21:07 | RADIOLOGY REPORT (SQ) ---
EXAM DESCRIPTION: XR CHEST 2 VIEWS COMPLETED DATE/TME: 01/12/2020 20:18 CLINICAL HISTORY: 34 years, Female, Tachycardia racing heart chest flutters COMPARISON: Prior study from 03/27/2019 NUMBER OF VIEWS: 2 TECHNIQUE: Frontal and lateral radiograph are obtained LIMITATIONS: None. FINDINGS: Cardiac and mediastinal contours are stable. Lungs are clear. No pleural effusion or pneumothorax. IMPRESSION: No acute disease. copyright 2010 [employer] (formerly [employer])- All Rights Reserved
[2020-01-12 21:15] LABS: ALBUMIN 4.4 g/dL (3.5-5.0); ALKALINE PHOSPHATASE 62 U/L (38-126); ANION GAP 6 (5-19); ASPARTATE AMINO TRANSFERASE 23 U/L (14-36); BILIRUBIN,DIRECT 0.3 mg/dL (0.0-0.4); BILIRUBIN,TOTAL 0.3 mg/dL (0.2-1.3); BLOOD UREA NITROGEN 12 mg/dL (7-20); CALCIUM 9.9 mg/dL (8.4-10.2); CARBON DIOXIDE 28 mmol/L (22-30); CHLORIDE 107 mmol/L (98-107); CREATINE KINASE 63 U/L (30-135); GLUCOSE 104 mg/dL (75-110); POTASSIUM 4.1 mmol/L (3.6-5.0); TOTAL PROTEIN 7.7 g/dL (6.3-8.2)
[2020-01-12 21:32] LABS: FREE T3 3.52 pg/mL (2.77-5.27); FREE T4 (FREE THYROXINE) 1.2 ng/dL (0.78-2.19)
[2020-01-12 21:45] LABS: THYROID STIMULATING HORMONE 1.44 uIU/mL (0.47-4.68)
--- NOTE | 2020-01-13 00:15 | ER Document Report ---
ED General - General Chief Complaint: Irregular Pulse Stated Complaint: IRREGULAR PULSE,DIZZINESS/SHORTNESS OF BREATH Time Seen by Provider: 01/12/20 20:14 Primary Care Provider: ANITA DU MD [Primary Care Provider] - Follow up as needed BRIAN WATSON MD [ACTIVE PROVISIONAL STAFF] - Follow up as needed Mode of Arrival: Ambulatory TRAVEL OUTSIDE OF THE [place] IN LAST 30 DAYS: No - HPI Notes: Patient is a 34-year-old female who presents emergency department for evaluation of an elevated heart rate. She states that she first noticed it when her watch by this, which told her her heart rate was in the 180s. She states it gradually went down to the 100 range. She states that she checked her pulse when it was around 120, believed it to be appropriately recording her pulse. She states she felt diaphoretic and anxious during this. She denies any associated chest pain, shortness of breath, nausea. She states it lasted a few minutes. She states that she has symptoms like this a few times a week, has always attributed to her anxiety. She is never had her watch notify her of an elevated heart rate like this in the past. She does not drink more than 1 or 2 cups of coffee a week. She denies use of illicit drugs. She has no history of pulmonary embolus, no family history of pulmonary embolus. No recent prolonged immobilization, no recent surgeries, no personal history of cancer. - Related Data Allergies/Adverse Reactions: latex [Latex] Adverse Reaction (Intermediate, Verified 01/12/20 20:13) Rash, Itching Home Medications: ABILIFY. LEXAPRO. BUSPAR Past Medical History - General Information source: Patient - Social History Smoking Status: Former Smoker Frequency of alcohol use: None Drug Abuse: None Family History: CAD - Mother with [place] in her 50s, Hyperlipidemia, Hypertension, Malignancy - Past Medical History Cardiac Medical History: Reports: Hx Hypertension Pulmonary Medical History: Reports: Hx Pneumonia Neurological Medical History: Reports: Hx Migraine Renal/ Medical History: Denies: Hx Peritoneal Dialysis Musculoskeletal Medical History: Reports Hx Arthritis, Reports Hx Musculoskeletal Deformity Psychiatric Medical History: Reports: Hx Anxiety, Hx Attention Deficit Hyperactivity Disorder, Hx Bipolar Disorder, Hx Depression Past Surgical History: Reports: Hx Herniorrhaphy - Umbilical hernia, Hx Tonsillectomy, Hx Umbilical Hernia - Immunizations Immunizations up to date: Yes Hx Diphtheria, Pertussis, Tetanus Vaccination: Yes - 2010 Review of Systems - Review of Systems Constitutional: See HPI EENT: No symptoms reported Cardiovascular: See HPI Respiratory: No symptoms reported Gastrointestinal: No symptoms reported Genitourinary: No symptoms reported Musculoskeletal: No symptoms reported Skin: No symptoms reported Neurological/Psychological: No symptoms reported Physical Exam - Vital signs Vitals: Temp Pulse Resp BP Pulse Ox 98.2 F 102 H 18 138/81 H 99 01/12/20 19:54 01/12/20 19:54 01/12/20 19:54 01/12/20 19:54 01/12/20 19:54 - Notes Notes: Vital signs reviewed, please refer to chart. Head is normocephalic, atraumatic. Pupils equal round, reactive to light. Neck is supple without meningismus. Heart is regular rate and rhythm. Lungs are clear to auscultation bilaterally. Abdomen is soft, nontender, normoactive bowel sounds throughout. Extremities without cyanosis, clubbing. Posterior calves are nontender. Peripheral pulses are equal. Skin is warm and dry. Patient is awake, alert, neurological exam is nonfocal. Course - Re-evaluation Re-evalutation: 01/13/20 00:19 Patient presents emergency department for evaluation of an elevated heart rate. I did inform the patient that her smart watch may not be accurately reading her pulse, but certainly it is possible that she is having intermittent heart rates that are this high. We talked about the differential diagnosis of this, and the need for further evaluation. She voiced understanding. Otherwise, her laboratory investigations, including thyroid studies, are completely unremarkable. Recommend follow-up, possible Holter versus event monitor. Christo faulkner is amenable to this plan. She is to return to the ED with worsening or new concerning symptoms of any sort. - Vital Signs Vital signs: Temp Pulse Resp BP Pulse Ox 98.1 F 89 18 129/75 H 99 01/12/20 23:14 01/12/20 23:14 01/12/20 19:54 01/12/20 23:14 01/12/20 23:14 - Laboratory Result Diagrams: 01/12/20 20:35 01/12/20 20:35 Laboratory results interpreted by me: 01/12/20 20:35 WBC 11.4 H - Diagnostic Test Radiology reviewed: Reports reviewed Radiology results interpreted by me: 01/13/20 00:20 Chest X-Ray 01/12/20 20:18 IMPRESSION: No acute disease. copyright 2011 [employer]- All Rights Reserved - EKG Interpretation by Me Additional EKG results interpreted by me: 01/13/20 00:20 Sinus tachycardia with rate of 102 bpm. Normal axis and intervals. No acute ST changes concerning for ischemia or infarction. Discharge - Discharge Clinical Impression: Palpitations Condition: Stable Disposition: HOME, SELF-CARE Instructions: Palpitations (Irregular or Rapid Heartrate) ([facility]) Additional Instructions: No abnormalities were identified in your work-up today. Continue to avoid caffeine. Stay well-hydrated. You might want to discuss an event monitor or a Holter monitor for evaluation of possible arrhythmias. You can follow-up with our on-call eyeglass cutter, listed below. Return to the emergency department with worsening or new concerning symptoms of any sort. Referrals: ANITA DU MD [Primary Care Provider] - Follow up as needed BRIAN WATSON MD [ACTIVE PROVISIONAL STAFF] - Follow up as needed
[2020-01-13 00:48] VITALS: BP 128/78
--- NOTE | 2020-01-13 10:27 | EKG REPORT ---
SEVERITY:- OTHERWISE NORMAL ECG - SINUS TACHYCARDIA : Confirmed by: Christie Aden MD 13-Jan-2020 10:27:09
== END 2020-01-13 00:27 | disposition home or self-care (01) ==
LOC: ER 19:41
DX: R00.2 Palpitations (principal); R42 Dizziness and giddiness; R06.02 Shortness of breath; R61 Generalized hyperhidrosis; F41.9 Anxiety disorder, unspecified; Z88.8 Allergy status to other drugs, medicaments and biological substances; Z79.899 Other long term (current) drug therapy; Z87.891 Personal history of nicotine dependence; I10 Essential (primary) hypertension
CPT/HCPCS: 36415; 71046; 80053; 82550; 83735; 84439; 84443; 84481; 84484; 84703; 85025; 93005; 93010; 99285